=== PATIENT | male | born 1960 | race Caucasian/White ===

== ENCOUNTER → 2017-07-18 | Outpatient (REF) ==
--- NOTE | 2017-07-18 10:05 | DI ---
EXAM: Two views of the chest. History: Pre-employment screening Comparison: Chest radiograph 06/30/2016 Findings: Heart size is normal. No focal consolidation. No appreciable pleural fluid and no pneumo thorax. No acute osseous abnormalities. Impression: No acute cardiopulmonary process.
== END ==
LOC: RAD 09:24
DX: Z02.89 Encounter for other administrative examinations (principal)